=== PATIENT | female | born 1960 | race Caucasian/White ===

== ENCOUNTER 2017-10-08 10:13 | Emergency (ER) | payer OTHER ==
[2017-10-08 11:05] LABS: Absolute Lymphocytes (CBC) 1.7 K/uL (0.7-4.9); Absolute Monocytes 0.6 K/uL (0.1-1.3); Absolute Neutrophil 4.3 K/uL (1.8-8.0); Basophils % 0.5 % (0-1.3); Eosinophils % 2.7 % (0-4.4); Hematocrit 42.9 % (36.0-45.0); MCH 30.7 pg (27.0-35.0); MCV 91.1 fL (80-100); MPV 9.2 fL (7.6-11.3); Monocytes % 8.5 % (3.3-12.3); RBC Red Blood Cell Count 4.71 M/uL (3.86-4.86)
[2017-10-08 11:18] LABS: Bicarbonate 29 mEq/L (21-31); Glomerular Filtration Rate > 60 mL/min (>60); Glucose Level 100 mg/dL (65-120); Lipase 18 U/L (22-51); Potassium 4.4 mEq/L (3.6-5.0); Sodium Level 142 mEq/L (135-145)
[2017-10-08 11:24] LABS: ALT/SGPT 13 IU/L (10-60); AST/SGOT 17 IU/L (10-42); Albumin 4.3 g/dL (3.2-5.5); Alkaline Phosphatase 62 IU/L (42-121); Amylase Level 23 U/L (28-100); BUN Blood Urea Nitrogen 21 mg/dL (6-20); Bilirubin Direct < 0.1 mg/dL (0-0.2); Bilirubin Total 0.9 mg/dL (0.3-1.2); Glomerular Filtration Rate 68 mL/min (=/>90); Protein, Total 7.4 g/dL (6.0-8.3)
[2017-10-08] MEDS ORDERED: NA CHLORIDE 0.9% 1,000 ML ONE (11:26)
[2017-10-08] MEDS ORDERED: CIPROFLOXACIN 400mg IV 400 MG/200 ML BAG IV ONE (11:26)
[2017-10-08] MEDS ORDERED: METRONIDAZOLE 500mg IVPB 500 MG/100 ML BAG IV ONE (11:26)
--- NOTE | 2017-10-08 11:53 | EDPHYS ---
Physician Documentation [facility] Name: Jessy Palmer Age: 57 yrs Sex: Female : 1960 Arrival Date: 10/08/2017 Time: 10:16 Bed 6 Private MD: Dhiraj Oliver HPI: 10/08 10:54 This 57 yrs old Female presents to ER via Ambulatory with complaints of santy Diarrhea, Rectal Bleeding. 10:54 The patient presents to the emergency department with diarrhea, abdominal pain, of the santy right lower quadrant and left lower quadrant. Onset: The symptoms/episode began/occurred 1 day(s) ago. Possible causes: unknown. The symptoms are aggravated by nothing. The symptoms are alleviated by nothing. Associated signs and symptoms: The patient has no apparent associated signs or symptoms. Severity of symptoms: At their worst the symptoms were mild. The patient has not experienced similar symptoms in the past. Historical: - Allergies: 10:28 Sulfa (Sulfonamide Antibiotics); hb 10:28 Codeine; itching; hb - Home Meds: 10:28 levothyroxine 75 mcg oral tab [Active]; liothyronine 5 mcg oral tab 1 tab once daily hb [Active]; montelukast 10 mg oral tab 1 tab once daily [Active]; hydrochlorothiazide 25 mg Oral tab 1 tab once daily [Active]; losartan 50 mg oral tab 1 tab once daily [Active]; Super B Complex + C 150 mg oral tab [Active]; multivitamin oral tab [Active]; - PMHx: 10:28 Diverticulosis; Hypothyroidism; GERD; hb - PSHx: 10:28 "acid reflux surgery"; hb - Immunization history:: Adult Immunizations up to date. - Social history:: Smoking status: unknown. ROS: 10:56 Constitutional: Negative for fever, chills, and weight loss, Eyes: Negative for injury, santy pain, redness, and discharge, ENT: Negative for injury, pain, and discharge, Neck: Negative for injury, pain, and swelling, Cardiovascular: Negative for chest pain, palpitations, and edema, Respiratory: Negative for shortness of breath, cough, wheezing, and pleuritic chest pain, Back: Negative for injury and pain, : Negative for injury, bleeding, discharge, and swelling, MS/Extremity: Negative for injury and deformity, Skin: Negative for injury, rash, and discoloration, Neuro: Negative for headache, weakness, numbness, tingling, and seizure, Psych: Negative for depression, anxiety, suicide ideation, homicidal ideation, and hallucinations, Allergy/Immunology: Negative for hives, rash, and allergies, Endocrine: Negative for neck swelling, polydipsia, polyuria, polyphagia, and marked weight changes, Hematologic/Lymphatic: Negative for swollen nodes, abnormal bleeding, and unusual bruising. 10:56 Abdomen/GI: Positive for abdominal pain, rectal bleeding. Exam: 10:56 Constitutional: This is a well developed, well nourished patient who is awake, alert, santy and in no acute distress. Head/Face: Normocephalic, atraumatic. Eyes: Pupils equal round and reactive to light, extra-ocular motions intact. Lids and lashes normal. Conjunctiva and sclera are non-icteric and not injected. Cornea within normal limits. Periorbital areas with no swelling, redness, or edema. ENT: Nares patent. No nasal discharge, no septal abnormalities noted. Tympanic membranes are normal and external auditory canals are clear. Oropharynx with no redness, swelling, or masses, exudates, or evidence of obstruction, uvula midline. Mucous membranes moist. Neck: Trachea midline, no thyromegaly or masses palpated, and no cervical lymphadenopathy. Supple, full range of motion without nuchal rigidity, or vertebral point tenderness. No Meningismus. Chest/axilla: Normal chest wall appearance and motion. Nontender with no deformity. No lesions are appreciated. Cardiovascular: Regular rate and rhythm with a normal S1 and S2. No gallops, murmurs, or rubs. Normal PMI, no JVD. No pulse deficits. Respiratory: Lungs have equal breath sounds bilaterally, clear to auscultation and percussion. No rales, rhonchi or wheezes noted. No increased work of breathing, no retractions or nasal flaring. Back: No spinal tenderness. No costovertebral tenderness. Full range of motion. Female : Normal external genitalia. Skin: Warm, dry with normal turgor. Normal color with no rashes, no lesions, and no evidence of cellulitis. MS/ Extremity: Pulses equal, no cyanosis. Neurovascular intact. Full, normal range of motion. Neuro: Awake and alert, GCS 15, oriented to person, place, time, and situation. Cranial nerves II-XII grossly intact. Motor strength 5/5 in all extremities. Sensory grossly intact. Cerebellar exam normal. Normal gait. Psych: Awake, alert, with orientation to person, place and time. Behavior, mood, and affect are within normal limits. 10:56 Abdomen/GI: Inspection: bruising, Bowel sounds: normal, Palpation: abdomen is soft and non-tender, Rectal exam: the exam is deferred, because of patient request, Liver: no appreciated palpable abnormalities, Hernia: not appreciated. Vital Signs: 10:24 BP 152 / 96; Pulse 80; Resp 16; Temp 98; Pulse Ox 99% on R/A; Weight 74.84 kg; Height 5 hb ft. 5 in. (165.10 cm); Pain 1/10; 12:33 BP 132 / 74 Supine; Pulse 65; Resp 18; Pulse Ox 99% on R/A; aj 12:35 BP 142 / 84 Sitting; Pulse 73; aj 12:37 BP 115 / 82 Standing; Pulse 78; aj 13:30 BP 142 / 89 Sitting; Pulse 61; aj 13:32 BP 144 / 84 Standing; Pulse 69; aj 10:24 Body Mass Index 27.46 (74.84 kg, 165.10 cm) hb MDM: 10:36 Patient medically screened. [facility] 10:56 Data reviewed: vital signs, nurses notes, lab test result(s), radiologic studies, CT [facility] scan. 10/08 10:48 Order name: Amylase, Serum [facility] 10/08 10:48 Order name: Basic Metabolic Panel [facility] 10/08 10:48 Order name: CBC with Diff [facility] 10/08 10:48 Order name: Creatinine for Radiology [facility] 10/08 10:48 Order name: Hepatic Function [facility] 10/08 10:48 Order name: Lipase [facility] 10/08 10:48 Order name: Urine Microscopic Only [facility] 10/08 10:48 Order name: Type And Screen [facility] 10/08 10:54 Order name: Occult Blood [facility] 10/08 10:54 Order name: Stool Culture [facility] 10/08 10:54 Order name: Fecal Leukocyte Stain [facility] 10/08 11:06 Order name: CBC with Automated Diff; Complete Time: 11:41 [facility] 10/08 11:18 Order name: Basic Metabolic Panel; Complete Time: 11:41 [facility] 10/08 11:18 Order name: Lipase; Complete Time: 11:41 [facility] 10/08 10:48 Order name: IV Saline Lock; Complete Time: 11:04 [facility] 10/08 10:48 Order name: Labs collected and sent; Complete Time: 11:05 [facility] 10/08 10:48 Order name: Urine Dipstick-Ancillary (obtain specimen); Complete Time: 12:26 [facility] 10/08 11:19 Order name: Creatinine (Radiology Only); Complete Time: 11:41 [facility] 10/08 11:24 Order name: Liver (Hepatic) Function; Complete Time: 11:41 [facility] 10/08 11:24 Order name: Amylase Level; Complete Time: 11:41 [facility] 10/08 11:36 Order name: Urine Dipstick--Ancillary (enter results) 10/08 11:42 Order name: Orthostatics; Complete Time: 12:42 [facility] 10/08 11:56 Order name: Urine Dipstick-Ancillary [facility] 10/08 12:06 Order name: Urine Microscopic Only [facility] Administered Medications: 11:23 Drug: Flagyl 500 mg Volume: 100 ml; Route: IVPB; Rate: 200 ml/hr; Infused Over: 30 aj mins; Site: left forearm; 13:41 Follow up: Response: No adverse reaction; IV Status: Completed infusion; IV Intake: aj 100ml 11:24 Drug: NS 0.9% 1000 ml Route: IV; Rate: 1 bolus; Site: left forearm; aj 13:40 Follow up: Response: No adverse reaction; IV Status: Completed infusion; IV Intake: aj 1000ml 11:24 Drug: Cipro 400 mg Volume: 200 ml; Route: IVPB; Infused Over: 60 mins; Site: left aj forearm; 13:40 Follow up: IV Status: Order to discontinue infusion aj 13:41 Follow up: Response: No adverse reaction; IV Status: Completed infusion; IV Intake: aj 200ml 12:25 Not Given (discharges prior to adminstration): NS 0.9% 1000 ml IV at 125 ml/hr aj continuous Disposition: 10/08/17 11:52 Discharged to Home. Impression: Gastrointestinal hemorrhage, unspecified - lower, Diverticular disease of intestine. - Condition is Stable. - Discharge Instructions: Diverticulosis, Gastrointestinal Bleeding, Gastrointestinal Bleeding, [id number]. - Prescriptions for Bentyl 20 mg Oral Tablet - take 1 tablet by ORAL route every 6 hours As needed; 20 tablet. Flagyl 500 mg Oral Tablet - take 1 tablet by ORAL route every 6 hours for 7 days; 28 tablet. Protonix 40 mg Oral Tablet, Delayed Release (E.C.) - take 1 tablet by ORAL route once daily; 14 tablet. Cipro 500 mg Oral Tablet - take 1 tablet by ORAL route every 12 hours for 7 days; 14 tablet. - Medication Reconciliation Form, Thank You Letter, Antibiotic Education, Prescription Opioid Use form. - Follow up: Private Physician; When: 2 - 3 days; Reason: Recheck today's complaints, Continuance of care, Re-evaluation by your physician. Follow up: Balaji Maldonado; When: 2 - 3 days; Reason: Recheck today's complaints, Re-evaluation by your physician. - Problem is new. - Symptoms have improved. Signatures: Dispatcher [employer] Yamel Thorne RN RN aj Anderson, Corey, MD MD cha Baxter, Heather, RN RN
--- NOTE | 2017-10-08 11:53 | ER ---
Nurse's Notes [facility] Name: Jessy Palmer Age: 57 yrs Sex: Female : 1960 Arrival Date: 10/08/2017 Time: 10:16 Bed 6 Private MD: Diagnosis: Gastrointestinal hemorrhage, unspecified-lower;Diverticular disease of intestine Presentation: 10/08 10:23 Presenting complaint: Patient states: Diarrhea since last night, bright red bloody hb diarrhea this morning. Also reports lower abdominal cramping, bloating, and nausea. Hx diverticulosis. Transition of care: patient was not received from another setting of care. Onset of symptoms was October 07, 2017. Care prior to arrival: None. 10:23 Method Of Arrival: Ambulatory hb 10:23 Acuity: KARLA 3 hb Historical: - Allergies: 10:28 Sulfa (Sulfonamide Antibiotics); hb 10:28 Codeine; itching; hb - Home Meds: 10:28 levothyroxine 75 mcg oral tab [Active]; liothyronine 5 mcg oral tab 1 tab once daily hb [Active]; montelukast 10 mg oral tab 1 tab once daily [Active]; hydrochlorothiazide 25 mg Oral tab 1 tab once daily [Active]; losartan 50 mg oral tab 1 tab once daily [Active]; Super B Complex + C 150 mg oral tab [Active]; multivitamin oral tab [Active]; - PMHx: 10:28 Diverticulosis; Hypothyroidism; GERD; hb - PSHx: 10:28 "acid reflux surgery"; hb - Immunization history:: Adult Immunizations up to date. - Social history:: Smoking status: unknown. Screenin:00 Abuse screen: Denies threats or abuse. Denies injuries from another. Nutritional aj screening: No deficits noted. Tuberculosis screening: No symptoms or risk factors identified. Fall Risk None identified. Assessment: 11:00 General: Appears in no apparent distress. comfortable, Behavior is calm, cooperative, aj appropriate for age. Pain: Denies pain. Neuro: Level of Consciousness is awake, alert, obeys commands, Oriented to person, place, time, situation. Respiratory: Airway is patent Respiratory effort is even, unlabored, Respiratory pattern is regular, symmetrical. GI: Abdomen is obese, Reports diarrhea, rectal bleeding. Derm: Skin is intact, is healthy with good turgor, Skin is pink, warm \\T\\ dry. normal. 13:09 Reassessment: Patient appears in no apparent distress at this time. No changes from aj previously documented assessment. Patient and/or family updated on plan of care and expected duration. Pain level reassessed. Patient is alert, oriented x 3, equal unlabored respirations, skin warm/dry/pink. Patient denies pain at this time. Patient states feeling better. Patient states symptoms have improved. 13:09 Reassessment: Discharge pending IV fluid completion and repeat orthostatics. aj Vital Signs: 10:24 BP 152 / 96; Pulse 80; Resp 16; Temp 98; Pulse Ox 99% on R/A; Weight 74.84 kg; Height 5 hb ft. 5 in. (165.10 cm); Pain 1/10; 12:33 BP 132 / 74 Supine; Pulse 65; Resp 18; Pulse Ox 99% on R/A; aj 12:35 BP 142 / 84 Sitting; Pulse 73; aj 12:37 BP 115 / 82 Standing; Pulse 78; aj 13:30 BP 142 / 89 Sitting; Pulse 61; aj 13:32 BP 144 / 84 Standing; Pulse 69; aj 10:24 Body Mass Index 27.46 (74.84 kg, 165.10 cm) hb ED Course: 10:16 Patient arrived in ED. as 10:24 Triage completed. hb 10:25 Arm band placed on right wrist. hb 10:36 Dhiraj Webster MD is Attending Physician. santy 11:00 Yamel Cleary, RN is Primary Nurse. aj 11:00 Patient has correct armband on for positive identification. Placed in gown. Bed in low aj position. Call light in reach. Side rails up X 1. Adult w/ patient. Pulse ox on. NIBP on. 11:00 Inserted saline lock: 20 gauge in left forearm, using aseptic technique. Blood aj collected. 11:50 Balaji Maldonado MD is Referral Physician. santy 13:39 No provider procedures requiring assistance completed. IV discontinued, intact, aj bleeding controlled, No redness/swelling at site. Pressure dressing applied. Administered Medications: 11:23 Drug: Flagyl 500 mg Volume: 100 ml; Route: IVPB; Rate: 200 ml/hr; Infused Over: 30 aj mins; Site: left forearm; 13:41 Follow up: Response: No adverse reaction; IV Status: Completed infusion; IV Intake: aj 100ml 11:24 Drug: NS 0.9% 1000 ml Route: IV; Rate: 1 bolus; Site: left forearm; aj 13:40 Follow up: Response: No adverse reaction; IV Status: Completed infusion; IV Intake: aj 1000ml 11:24 Drug: Cipro 400 mg Volume: 200 ml; Route: IVPB; Infused Over: 60 mins; Site: left aj forearm; 13:40 Follow up: IV Status: Order to discontinue infusion aj 13:41 Follow up: Response: No adverse reaction; IV Status: Completed infusion; IV Intake: aj 200ml 12:25 Not Given (discharges prior to adminstration): NS 0.9% 1000 ml IV at 125 ml/hr aj continuous Intake: 13:40 IV: 1000ml; Total: 1000ml. aj 13:41 IV: 200ml; Total: 1200ml. aj 13:41 IV: 100ml; Total: 1300ml. aj Outcome: 11:52 Discharge ordered by . santy 13:39 Discharged to home ambulatory, with family. jamee 13:39 Condition: good 13:39 Discharge instructions given to patient, family, Instructed on discharge instructions, follow up and referral plans. medication usage, Demonstrated understanding of instructions, follow-up care, medications, Prescriptions given X 4. 13:49 Patient left the ED. aj Signatures: Yamel Cleary, RN RN Dhiraj Caballero MD MD cha Martinez, Amelia as Baxter, Heather, RN RN
[2017-10-08 11:55] LABS: Urine Blood NEGATIVE (NEG); Urine Glucose NEGATIVE (NEG); Urine Protein NEGATIVE (NEG); Urine pH 5.5 (5.0-7.0)
[2017-10-08 12:06] LABS: Urine Bacteria <20 /HPF (<20); Urine Culture Reflex Order NOT NEEDED; Urine Mucus NS /HPF (NONE SEEN); Urine RBC NONE SEEN /HPF (NONE SEEN)
== END 2017-10-08 13:49 | disposition home or self-care (01) ==
LOC: ER 10:13
DX: K57.90 Diverticulosis of intestine, part unspecified, without perforation or abscess without bleeding (principal); E03.9 Hypothyroidism, unspecified; Z88.2 Allergy status to sulfonamides; Z88.5 Allergy status to narcotic agent
CPT/HCPCS: 36415; 80048; 80076; 81003; 81015; 82150; 83690; 85025; 96361; 96365; 96368; 99284; J0744; J7030